=== PATIENT | female | born 1995 ===

== ENCOUNTER 2022-11-06 07:33 | Inpatient (IN) | payer BC ==
[2022-11-06] MEDS ORDERED: Carboprost Tromethamine 250 MCG/1 mL Vial IM PRN (08:35)
[2022-11-06] MEDS ORDERED: Sodium Chloride 0.9% 2.5 ML Syringe FLUSH PRN (08:35)
[2022-11-06] MEDS ORDERED: Tranexamic Acid 1,000 MG in Sodium Chloride 0.9% 100 ML IV PRN (08:35)
[2022-11-06] MEDS ORDERED: Sodium Chloride 0.9% 20 ML SDV IV PRN (08:35)
[2022-11-06] MEDS ORDERED: Water For Irrigation,Sterile 1,000 ML Container IRR PRN (08:35)
[2022-11-06] MEDS ORDERED: Misoprostol 200 MCG Tab PO PRN (08:35)
[2022-11-06] MEDS ORDERED: Ampicillin 2 GM in Sodium Chloride 0.9% 100 ML IV ONE (08:35)
[2022-11-06] MEDS ORDERED: Lidocaine 1% 50 ML MDV INJECT PRN (08:35)
[2022-11-06] MEDS ORDERED: Butorphanol 1 MG/ML SDV IVPUSH PRN (08:35)
[2022-11-06] MEDS ORDERED: Methylergonovine 0.2 MG/1 ML Amp IM PRN (08:35)
[2022-11-06] MEDS ORDERED: Sodium Chloride 0.9% 10 ML Syringe FLUSH PRN (08:35)
[2022-11-06] MEDS ORDERED: Betamethasone Acetate/Betamethasone Sod Phosphate 6 MG/1 ML MDV IM ONE (08:38)
[2022-11-06] MEDS ORDERED: Oxytocin/0.9 % Sodium Chloride 30 UNIT/500 ML BAG IV SCH ×2 (08:45→17:00)
[2022-11-06] MEDS: Lactated Ringers 1,000 ML IV SCH ×3 (08:52→19:22)
[2022-11-06 09:44] LABS: HEMATOCRIT 42.4 % (36.0-46.0); HEMOGLOBIN 14.9 g/dL (12.0-16.0); MEAN CORPUSCULAR HGB CONC 35.1 g/dL (31.0-37.0); MEAN CORPUSCULAR VOLUME 93.8 fL (80.0-98.0); MEAN PLATELET VOLUME 11.8 fL (7.40-12.00); RED BLOOD CELL COUNT 4.52 M/uL (4.30-5.90); WHITE BLOOD CELL COUNT,WBC 10.96 K/uL (4.0-11.0)
[2022-11-06] MEDS ORDERED: Phenylephrine HCl 0.5 MG/5 ML AMP IVPUSH PRN (11:38)
[2022-11-06] MEDS ORDERED: ePHEDrine 50 MG/ML SDV IVPUSH PRN ×2 (11:38)
[2022-11-06] MEDS ORDERED: Ropivacaine HCl/PF 400 MG in Premix Bag 1 BAG EPIDUR SCH (11:45)
[2022-11-06] MEDS: Ampicillin 1 GM in Sodium Chloride 0.9% 50 ML IV SCH ×3 (13:13→20:49)
[2022-11-06] MEDS ORDERED: Terbutaline 1 MG/ML SDV SUBCUT PRN (16:50)
[2022-11-06] MEDS ORDERED: Dexmedetomidine 200 MCG/2 ML SDV ONE (18:58)
[2022-11-06] MEDS ORDERED: Bisacodyl 10 MG Supp RECTAL PRN (23:49)
[2022-11-06] MEDS ORDERED: Acetaminophen 500 MG Tab PO PRN ×2 (23:49)
[2022-11-06] MEDS ORDERED: Benzocaine/Menthol 20%-0.5% Spray 78 GM Cannister TOP PRN (23:49)
[2022-11-06] MEDS ORDERED: Lanolin 100% Cream 7 GM Tube TOP PRN (23:49)
[2022-11-06] MEDS ORDERED: oxyCODONE 5 MG Tab PO PRN (23:49)
[2022-11-06] MEDS ORDERED: Docusate Sodium 100 MG Cap PO PRN (23:49)
[2022-11-06] MEDS ORDERED: Ibuprofen 800 MG Tab PO PRN (23:49)
[2022-11-06] MEDS ORDERED: Ibuprofen 400 MG Tab PO PRN (23:49)
[2022-11-07 00:11] LABS: PH,UMBILICAL ARTERIAL 7.245 (7.18-7.38); PH,UMBILICAL VENOUS 7.321 (7.25-7.45)
[2022-11-07] MEDS: Witch Hazel Medicated Pads 40/Jar TOP PRN ×2 (04:21→13:27)
[2022-11-07 06:08] LABS: HEMATOCRIT 38.4 % (36.0-46.0); HEMOGLOBIN 13.4 g/dL (12.0-16.0)
== END 2022-11-08 21:00 | disposition home or self-care (01) | DRG 560 ==
LOC: MW.OBCHECK 07:33 → MW.OB 07:34 → MW.OBCHECK 08:34 → MW.OB 08:35 → OBSVTOIN 23:21 → MW.OB 11-07 05:09
PROVIDERS: ADMIT Obstetrics & Gynecology; ATTEND Obstetrics & Gynecology
PROC: 10E0XZZ Delivery of Products of Conception, External Approach (ICD-10-PCS; principal; 2022-11-06)
PROC: 3E0R3BZ Introduction of Anesthetic Agent into Spinal Canal, Percutaneous Approach (ICD-10-PCS; 2022-11-06)
PROC: 00HU33Z Insertion of Infusion Device into Spinal Canal, Percutaneous Approach (ICD-10-PCS; 2022-11-06)
DX: O42.013 Preterm premature rupture of membranes, onset of labor within 24 hours of rupture, third trimester (principal); Z37.0 Single live birth; Z20.822 Contact with and (suspected) exposure to COVID-19; Z3A.34 34 weeks gestation of pregnancy; Z3A.35 35 weeks gestation of pregnancy; Z87.891 Personal history of nicotine dependence
CPT/HCPCS: 01967; 36415; 51702; 59025; 59409; 82803; 84112; 85014; 85018; 85027; 86592; 86850; 86900; 86901; 87653; A9270-GY; J0290; J0702; J2590; J3490; J7120; U0002